=== PATIENT | female | born 1975 | race Caucasian/White ===

== ENCOUNTER → 2019-03-08 07:11 | Outpatient (CLI) | payer SELFPAY ==
--- NOTE | 2019-03-08 07:17 | BI_ITS ---
MAMMOGRAPHY - BILATERAL SCREENING REASON FOR EXAM: Female, 44 years old. Routine annual screening examination. PERTINENT HISTORY: Sister with breast cancer. Aunt with breast cancer. TECHNIQUE: Digital bilateral breast kelli (3D mammographic acquisition) in the CC and MLO projections. 2-D mediolateral oblique (MLO) and craniocaudad (CC) views of both breasts were obtained. CAD: Full Field Digital Mammography with Computer Added Detection was performed. COMPARISON: Comparison is made with prior study dated February 12, 2016 and March 12, 2014. FINDINGS: Breast Composition: There are scattered areas of fibroglandular density. There are no dominant masses or suspicious calcifications. No other significant abnormalities are identified. There has been no significant change since the prior study. BI/SCREEN MAMM (CAD) W/KELLI BILAT IMPRESSION: Stable bilateral screening mammogram. Yearly follow-up mammogram recommended. (A) ASSESSMENT CATEGORY: BIRADS Category 1: Negative. A letter regarding these results will be sent to the patient by the facility within 30 days. Approximately 10% of breast cancers are not detected by mammography. A normal mammogram should not delay biopsy of a clinically suspicious abnormality. [id number] Electronically Signed: Oliver Presley, at 8:58 EDT , Service support ,
== END ==
PROVIDERS: Family Provider Family Medicine; PCP Family Medicine; Referring Provider Obstetrics & Gynecology; Visit Provider Obstetrics & Gynecology
DX: Z12.31 Encounter for screening mammogram for malignant neoplasm of breast (principal)
CPT/HCPCS: 77063; 77067

== ENCOUNTER → 2020-10-08 12:38 | Outpatient (CLI) | payer OTHER, SELFPAY ==
--- NOTE | 2020-10-08 12:41 | BI_ITS ---
MAMMOGRAPHY - BILATERAL SCREENING REASON FOR EXAM: Female, 45 years old. Routine annual screening examination. PERTINENT HISTORY: Sister with breast cancer. Aunt with breast cancer. TECHNIQUE: Digital bilateral breast kelli (3D mammographic acquisition) in the CC and MLO projections. 2-D mediolateral oblique (MLO) and craniocaudad (CC) views of both breasts were obtained. CAD: Full Field Digital Mammography with Computer Added Detection was performed. COMPARISON: Comparison is made with prior examination of 03/08/2019 and 02/12/2016. FINDINGS: Breast Composition: There are scattered areas of fibroglandular density. There are no dominant masses or suspicious calcifications. No other significant abnormalities are identified. There has been no significant change since the prior study. BI/SCRN MAMM (CAD)W/KELLI BILAT IMPRESSION: Stable bilateral screening mammogram. Yearly follow-up mammogram recommended. (A) ASSESSMENT CATEGORY: BIRADS Category 1: Negative. A letter regarding these results will be sent to the patient by the facility within 30 days. Approximately 10% of breast cancers are not detected by mammography. A normal mammogram should not delay biopsy of a clinically suspicious abnormality. [id number] Electronically Signed: Oliver Presley MD at 13:46 EST , Service support ,
== END ==
PROVIDERS: PCP Family Medicine; Referring Provider Obstetrics & Gynecology; Visit Provider Obstetrics & Gynecology
DX: Z12.31 Encounter for screening mammogram for malignant neoplasm of breast (principal)
CPT/HCPCS: 77063; 77067

== ENCOUNTER → 2022-07-03 | Outpatient (CLI) | payer OTHER, SELFPAY ==
--- NOTE | 2022-07-03 10:05 | BI_ITS ---
MAMMOGRAPHY - BILATERAL SCREENING REASON FOR EXAM: Female, 47 years old. Routine annual screening examination. PERTINENT HISTORY: Sister with breast cancer. Aunt with breast cancer. TECHNIQUE: Digital bilateral breast kelli (3D mammographic acquisition) in the CC and MLO projections. 2-D mediolateral oblique (MLO) and craniocaudad (CC) views of both breasts were obtained. CAD: Full Field Digital Mammography with Computer Added Detection was performed. COMPARISON: Comparison is made with prior study 10/08/2020 and 03/08/2019. FINDINGS: Breast Composition: There are scattered areas of fibroglandular density. There are no dominant masses or suspicious calcifications. No other significant abnormalities are identified. There has been no significant change since the prior study. BI/SCRN MAMM (CAD)W/KELLI BILAT IMPRESSION: Stable bilateral screening mammogram. Yearly follow-up mammogram recommended. (A) ASSESSMENT CATEGORY: BIRADS Category 1: Negative. A letter regarding these results will be sent to the patient by the facility within 30 days. Approximately 10% of breast cancers are not detected by mammography. A normal mammogram should not delay biopsy of a clinically suspicious abnormality. [id number] Electronically Signed: Oliver Presley MD at 10:48 EDT ,
== END | disposition home or self-care (01) ==
PROVIDERS: PCP Family Medicine; Referring Provider Obstetrics & Gynecology; Visit Provider Obstetrics & Gynecology
DX: Z12.31 Encounter for screening mammogram for malignant neoplasm of breast (principal)
CPT/HCPCS: 77063; 77067

== ENCOUNTER 2023-11-15 05:30 | Emergency (ER) | payer BC, SELFPAY ==
[2023-11-15 05:34] VITALS: BP 164/106; PULSE 97; RESP 18; TEMP 36.2; O2SAT 100; BMI 40.8
[2023-11-15] MEDS: Ondansetron 4 MG/2 ML Vial IV ×2 (05:47→07:49)
[2023-11-15] MEDS: Morphine 4 MG/ML Syringe IV ×2 (05:47→07:50)
--- NOTE | 2023-11-15 05:47 | ED.VIS.GI ---
HPI HPI - GI History of Present Illness Chief Complaint: Abd Pain Detail of Chief Complaint: Worsening right upper quadrant abdominal pain Informant: patient and spouse/S.O. Abdominal Pain/Flank Pain Onset: Yesterday (30 minutes after she had salad, baked potato with butter sour cream) Context: Sudden Onset Timing: Continuous and Waxes and wanes Quality: Cramping Location: RUQ Current Severity: Severe Maximum Severity: Severe Worsened by: Nothing Relieved by: Nothing Nausea/Vomiting/Emesis GI Symptom: Positive for Nausea; Negative for Vomiting Diarrhea/Melena/Hematochezia GI Symptom: Negative for Diarrhea, Melena or Hematochezia Associated Symptoms Associated Symptoms: Negative for Dysuria, Frequency, Hematuria or Urgency Narrative Narrative: Patient is a 48-year-old woman who is scheduled see Dr. Cuauhtemoc Augustin for right upper quadrant abdominal pain. She had a ultrasound of the right upper quadrant November 10 at [facility]. Report was reviewed and interpreted by radiologist as normal. Patient had a HIDA scan performed on November 11. Patient has a hyperactive gallbladder. Ejection fraction was 96%. The pain today is much worse. She has had nausea with no vomiting. She denies black or maroon stool. Denies diarrhea. She denies dysuria, frequency, urgency or hematuria. There is no history of renal ureterolithiasis. The ultrasound did reveal a fatty liver and that was the only abnormality. Prior similar symptoms: Yes Recent Illness/Hospitalization: No PFSH PFS Medical History ADD (attention deficit disorder) Home Medications albuterol sulfate 90 mcg/actuation aerosol inhaler 2 puff inhalation Q4H PRN PRN wheezing 11/15/23 [History Last Taken Unknown] azelastine 137 mcg (0.1 %) nasal spray aerosol 2 spray intranasal BID 11/15/23 [History Last Taken Unknown] diazepam 5 mg tablet 5 mg PO Q8H PRN PRN anxiety 11/15/23 [History Last Taken Unknown] ergocalciferol (vitamin D2) 1,250 mcg (50,000 unit) capsule 1,250 mcg PO QWEEK 11/15/23 [History Last Taken Unknown] fluticasone propionate 50 mcg/actuation nasal spray,suspension 2 spray intranasal DAILY 11/15/23 [History Last Taken Unknown] lisdexamfetamine 40 mg capsule 40 mg PO DAILY 11/15/23 [History Last Taken Unknown] ondansetron 4 mg disintegrating tablet 4 mg PO Q8H PRN PRN Nausea #10 tabs 11/15/23 [Rx Last Taken Unknown] ondansetron 4 mg disintegrating tablet 4 mg PO Q8H PRN PRN nausea/vomiting 11/15/23 [History Last Taken Unknown] oxycodone-acetaminophen 5 mg-325 mg tablet 1 tab PO Q6H PRN PRN pain 5 days #20 TABLETS 11/15/23 [Rx Last Taken Unknown] Allergy/AdvReac Type Severity Reaction Status Date / Time amoxicillin Allergy Hives Verified 11/15/23 05:34 pseudoephedrine AdvReac Other Verified 11/15/23 05:34 [From [facility]] Surgical History H/O: hysterectomy Hx of appendectomy Social History (Updated 11/15/23 @ 05:[address] Corwin Vences MD) household members: spouse Smoking Status: Never smoker substance use type: does not use ROS ROS ED Constitutional Constitutional ED: Denies chills, fever(s), subjective or sweats ENT ENT ED: Denies ear pain, rhinorrhea or sore throat Cardiovascular Cardiovascular: Denies chest pain or palpitations Respiratory/Chest Respiratory/Chest: Denies cough, dyspnea or dyspnea on exertion Gastrointestinal Gastrointestinal: Reports abdominal pain and nausea; Denies constipation, diarrhea, melena or vomiting Genitourinary Genitourinary ED: Denies dysuria, hematuria or urinary frequency Musculoskeletal Musculoskeletal: Denies arthralgias, back pain or neck pain Integumentary Denies rash Hematologic/Lymphatic Hematologic/Lymphatic: Denies easy bleeding or easy bruising EXAM Physical Exam Const Vital Signs: 11/15/23 05:34 11/15/23 07:02 Temperature 97.1 F L Temperature Source Temporal Pulse Rate 97 51 L Respiratory Rate 18 18 Blood Pressure 164/106 H 132/62 H Blood Pressure Mean 125 85 Pulse Ox 100 96 Oxygen Delivery Method Room Air Positive well nourished, well developed and obese Constitutional Narrative: Patient is in obvious discomfort grimacing. General Appearance ED: well developed; Negative for NAD or pallor Nutritional Appearance: obese HEENT Reports moist mucous membranes normocephalic and atraumatic Eyes PERRL and EOMs intact bilaterally General Eye ED: Negative for pale conjunctiva or scleral icterus Neck no lymphadenopathy, supple and no JVD Resp normal respiratory effort and clear to auscultation bilaterally Cardio regular rate, regular rhythm, S1 normal heart sound, S2 normal heart sound and no murmurs GI non-distended and no masses; Negative for non-tender Auscultation: normoactive bowel sounds Palpation: soft and tender RUQ and Gordon's sign Back/Spine no CVA tenderness Extremity full ROM General Extremety ED: Negative for edema or tenderness General Extremity: Negative for edema Neuro CN's II-XII intact bilaterally and moves all extremities Sensorium / Orientation: alert Psych mental status grossly normal and thought process normal Skin no wounds General Skin Exam: Negative for jaundice or pallor MDM MDM MDM Narrative Medical decision making narrative: Patient with right upper quadrant abdominal pain. She has known history of fatty liver. She has a hyperactive gallbladder. Suspect the pain started because of the rich meal she had this evening. Will medicate patient with Zofran for the nausea and morphine and ketorolac for her pain. CBC, liver enzymes and lipase were ordered. These have been negative in the past. History & Record Review Additional record(s) reviewed:: Prior outpatient record (As documented in the HPI narrative. Patient white count was elevated 14.3 thousand with normal differential last week. Alkaline phosphatase was slightly up as well.), Prior ED visit and Prior labs Lab Data Attestation: I reviewed the patient's lab results. Lab results narrative: CBC is normal. Hepatic panel is normal. Lipase is normal. Labs: Laboratory Results - last 24 hr 11/15/23 05:40 WBC 10.6 RBC 5.14 Hgb 14.9 Hct 45.2 MCV 87.9 MCH 29.0 MCHC 33.0 RDW Std Deviation 42.9 RDW Coeff of Stephen 13.2 Plt Count 329 MPV 9.2 Immature Gran % (Auto) 0.300 Neut % (Auto) 64.6 Lymph % (Auto) 25.7 [place] % (Auto) 7.8 Eos % (Auto) 1.0 Baso % (Auto) 0.6 Absolute Neuts (auto) 6.8 Absolute Lymphs (auto) 2.72 Nucleated RBC % 0 Total Bilirubin 0.50 Direct Bilirubin 0.12 AST 17 ALT 21 Alkaline Phosphatase 86 Total Protein 7.1 Albumin 3.5 Globulin 3.6 Lipase 50 Management Discussion w/another healthcare provider: [employer] (Dr. Cuauhtemoc Augustin was paged. He was informed of patient's ultrasound report, HIDA scan report presentation and laboratory studies. He recommended pain medicine and he will discuss treatment options when she is seen in the office. This was relayed to the patient.) Treatment and Re-Evaluation :: Patient was reassessed at 0610. Patient's pain has improved but she is still in discomfort. Discharge Plan Triage Chief Complaint: Abd Pain ED Provider: Corwin Vences Dx/Rx/DC Orders Clinical Impression: Elevated blood-pressure reading, without diagnosis of hypertension, Adult BMI 40.0-44.9 kg/sq m, Intermittent right upper quadrant abdominal pain, Nausea Instructions: ED Pain, Acute, Uncertain Cause Prescriptions: New oxycodone-acetaminophen [oxycodone-acetaminophen] 5-325 mg tablet 1 tab PO Q6H PRN PRN (Reason: pain) 5 Days Qty: 20 0RF ondansetron [ondansetron] 4 mg tablet,disintegrating 4 mg PO Q8H PRN PRN (Reason: Nausea) Qty: 10 0RF No Action ergocalciferol (vitamin D2) 1,250 mcg (50,000 unit) capsule 1,250 mcg PO QWEEK azelastine 137 mcg (0.1 %) aerosol,spray 2 spray INTRANASAL BID albuterol sulfate 90 mcg/actuation HFA aerosol inhaler 2 puff INHALATION Q4H PRN PRN (Reason: wheezing) ondansetron 4 mg tablet,disintegrating 4 mg PO Q8H PRN PRN (Reason: nausea/vomiting) fluticasone propionate 50 mcg/actuation spray,suspension 2 spray INTRANASAL DAILY diazepam 5 mg tablet 5 mg PO Q8H PRN PRN (Reason: anxiety) lisdexamfetamine 40 mg capsule 40 mg PO DAILY Primary Care Provider: Joce Welch Referrals: Cuauhtemoc Augustin MD [Med Staff - Active Staff] - Keep Venita appointment Joce Welch MD [Primary Care Provider] - Disposition Disposition: Home, Self Care
[2023-11-15 05:49] LABS: Absolute Lymphocyte Count 2.72 X10^3/uL (0.83-4.51); Absolute Neutrophil Count 6.8 X10^3/uL (2.0-7.7); Basophil# 0.06 X10^3/uL; Basophil% 0.6 % (0-1); Eosinophil# 0.11 X10^3/uL; Hematocrit 45.2 % (37-47); Hemoglobin 14.9 g/dL (12.0-15.0); Lymphocyte # 2.72 X10^3/ul (0.83-4.51); Lymphocyte % 25.7 % (19-41); Mean Corpuscular Volume 87.9 fL (81-99); Mean Platelet Vol. 9.2 fl (6.2-12.0); Monocyte# 0.82 X10^3/uL; Monocyte% 7.8 % (0-10); NRBC Flagged by Analyzer 0 % (0-5); Neutrophil # 6.83 X10^3/uL (2.7-7.7); Neutrophil % 64.6 % (47-70); Platelet Count 329 K/mm3 (150-450); RBC Distribution Width CV 13.2 % (11.6-14.6); RBC Distribution Width SD 42.9 fl (35.1-43.9); Red Blood Count 5.14 M/mm3 (4.2-5.4); White Blood Count 10.6 K/mm3 (4.4-11.0)
[2023-11-15] MEDS: Ketorolac 15 MG/ML Vial IV (05:52)
[2023-11-15 06:09] LABS: AST(SGOT) 17 U/L (15-37); Alanine Aminotransfer ALT/SGPT 21 U/L (13-56); Albumin, Serum 3.5 g/dL (3.2-5.0); Alkaline Phosphatase 86 U/L (45-117); Bilirubin, Direct 0.12 mg/dL (0.00-0.30); Globulin 3.6 g/dL (2.2-4.2); Lipase 50 U/L (13-75); Protein, Total 7.1 g/dL (6.4-8.2)
[2023-11-15 07:02] VITALS: BP 132/62; PULSE 51; RESP 18; O2SAT 96
[2023-11-15 08:28] VITALS: BP 142/70; PULSE 78; RESP 18; TEMP 36.6; O2SAT 96
== END 2023-11-15 08:31 | disposition home or self-care (01) ==
PROVIDERS: Emergency Provider Emergency Medicine; PCP Family Medicine; Visit Provider Emergency Medicine
DX: R03.0 Elevated blood-pressure reading, without diagnosis of hypertension (principal); R10.11 Right upper quadrant pain; R11.0 Nausea; Z79.51 Long term (current) use of inhaled steroids
CPT/HCPCS: 80076; 83690; 85025; 96374; 96375; 96376; 99283; A4216; J2405

== ENCOUNTER → 2023-11-19 | Outpatient (CLI) | payer BC, SELFPAY ==
--- NOTE | 2023-11-19 10:47 | CT_ITS ---
STUDY: CT ABDOMEN AND PELVIS WITH CONTRAST REASON FOR EXAM: Female, 48 years old. Generalized abdominal pain. Hyperactive gallbladder. RADIATION DOSAGE (If Supplied By Facility): CTDIvol = ( 20.32 ) mGy, DLP = ( 1211.33 ) mGycm TECHNIQUE: Transaxial images were obtained from the dome of the diaphragm to the symphysis pubis with oral contrast. Oral and amp; IV Readi-CAT and amp; 100mL Isovue-370 was administered. Sagittal and coronal images were reconstructed. Individualized dose optimization techniques were used for this CT. COMPARISON: None. FINDINGS: The visualized lung bases are unremarkable. The visualized portions of the heart are within normal limits. There is decreased attenuation of the liver consistent with steatosis. Findings suggestive by 1.1 cm hemangioma in the posterior inferior aspect of the right lobe of the liver. Normal gallbladder and extrahepatic biliary system. Normal spleen. Normal pancreas. Normal bilateral adrenal glands. Normal right kidney. Normal left kidney. There is a small hiatal hernia. Normal small intestine. Moderate amount of fecal material is seen in the colon. There is non-visualization of the appendix. Normal abdominal aorta. Normal inferior vena cava. Normal retroperitoneum. Normal urinary bladder. There is a 3.2 cm x 1.9 cm cyst in the right ovary. The patient is status post hysterectomy. Normal abdominal wall. There are diffuse degenerative changes of the visualized lumbar spine. Straightening of the normal lumbar lordosis. CT/Abdomen/Pelvis WITH Contrast IMPRESSION: Findings suggestive a 1.1 cm hemangioma in the posterior inferior aspect of right lobe of liver. Fatty infiltration of the liver. Electronically Signed: Oliver Presley MD at 12:05 EDT ,
== END | disposition home or self-care (01) ==
LOC: CT 10:46
PROVIDERS: PCP Family Medicine; Referring Provider Surgery; Visit Provider Surgery
DX: R10.11 Right upper quadrant pain (principal)
CPT/HCPCS: 74177; Q9967

== ENCOUNTER 2023-11-22 07:24 | Day surgery (SDC) | payer BC, SELFPAY ==
[2023-11-22] VITALS (14 sets, daily range): BP systolic 121–151; BP diastolic 64–95; PULSE 72–93; RESP 16–18; TEMP 36.1–36.6; O2SAT 6–100; BMI 42.5
--- NOTE | 2023-11-22 07:32 | EKG12_ITS ---
Test Reason : pre op Blood Pressure : / mmHG Vent. Rate : 078 BPM Atrial Rate : 078 BPM P-R Int : 130 ms QRS Dur : 082 ms QT Int : 358 ms P-R-T Axes : 048 006 010 degrees QTc Int : 408 ms Normal sinus rhythm Normal ECG No previous ECGs available Confirmed by SARABJIT REYNOLDS, SAMUEL ([id number]), industrial editor LAURA LERMA ([id number]) on 11/24/2023 1:23:51 PM Referred By: Cuauhtemoc Augustin Confirmed By:SAMUEL WHIPPLE MD
[2023-11-22] MEDS: Lactated Ringers 1,000 ML 15 ML IV (07:45)
--- NOTE | 2023-11-22 08:30 | RAD_ITS ---
STUDY: INTRAOPERATIVE CHOLANGIOGRAM. REASON FOR EXAM: Female, 48 years old. Laparoscopic cholecystectomy. FLUOROSCOPY TIME (if supplied): ( 32.4 seconds ) minutes/seconds. 76.96 mGy. TECHNIQUE: The surgeon performed an intraoperative cholangiogram. COMPARISON: None. FINDINGS: The visualized intra and extrahepatic biliary ducts are unremarkable. There is free flow of contrast into the duodenum. No retained calculus is seen. RAD/Cholangiogram/ O R,Initial IMPRESSION: Unremarkable intraoperative cholangiogram. Electronically Signed: Oliver Presley MD at 12:44 EDT ,
--- NOTE | 2023-11-22 08:41 | HP.PCM_ITS ---
History and Physical Date of Admission: 11/22/23 Visit Reasons: Gallbladder Chief Complaint: gallbladder [employer] Advisor Required: No Is patient in pain?: Yes (RUQ ) Allergies amoxicillin Allergy (Verified 11/17/23 08:05) Hivespseudoephedrine [From [facility]] Adverse Reaction (Verified 11/17/23 08:05) Other Medications albuterol sulfate 90 mcg/actuation aerosol inhaler 2 puff inhalation Q4H PRN PRN wheezing 11/15/23 [History Confirmed 11/17/23] azelastine 137 mcg (0.1 %) nasal spray aerosol 2 spray intranasal BID 11/15/23 [History Confirmed 11/17/23] diazepam 5 mg tablet 5 mg PO Q8H PRN PRN anxiety 11/15/23 [History Confirmed 11/17/23] ergocalciferol (vitamin D2) 1,250 mcg (50,000 unit) capsule 1,250 mcg PO QWEEK 11/15/23 [History Confirmed 11/17/23] fluticasone propionate 50 mcg/actuation nasal spray,suspension 2 spray intranasal DAILY 11/15/23 [History Confirmed 11/17/23] lisdexamfetamine 40 mg capsule 40 mg PO DAILY 11/15/23 [History Confirmed 11/17/23] ondansetron 4 mg disintegrating tablet 4 mg PO Q8H PRN PRN Nausea #10 tabs 11/15/23 [Rx Confirmed 11/17/23] ondansetron 4 mg disintegrating tablet 4 mg PO Q8H PRN PRN nausea/vomiting 11/15/23 [History Confirmed 11/17/23] oxycodone-acetaminophen 5 mg-325 mg tablet 1 tab PO Q6H PRN PRN pain 5 days #20 TABLETS 11/15/23 [Rx Confirmed 11/17/23] PFSH Medical History (Updated 11/17/23 @ 08:[address] Cuauhtemoc Augustin MD) ADD (attention deficit disorder) Surgical History H/O: hysterectomy Hx of appendectomy Social History (Updated 11/17/23 @ 08:04 by Charlotte Yan LPN) household members: spouse Smoking Status: Never smoker alcohol intake: current alcohol intake frequency: holidays/special occasions only substance use type: does not use HPI HPI HPI: 48-year-old female. She is being referred by SALVADOR Hooper and Dr. Joce Welch for surgical consultation regarding gallbladder disease and a written copy my surgical consult and recommendations will be returned to them. The patient had presented to primary care with concerns about right upper quadrant pain. On October 27, 2023 white blood cell count was 14.5 with a hemoglobin 14.6 Stephens crit 42.9 and a platelet count of 322,000. 70% neutrophils. Amylase was 45 and lipase 67 with a total protein of 7.3 and an alkaline phosphatase of 99 and an AST of 19 and ALT of 27 all of these normal. Her concern was right upper quadrant pain with radiation to the shoulder blade with nausea postprandially. I am aware of her other medications he was placed on ondansetron. She is routinely on omeprazole 20 mg daily. At [facility] on October 27, 2023 she had a right upper quadrant ultrasound. Fatty infiltration of the liver was identified. Common bile duct was normal at 4 mm. There is no pericholecystic fluid no wall thickening no stones. Gordon sign was negative. Because of worsening right upper quadrant pain the patient presented to the [facility] emergency room on November 15, 2023. 30 minutes after she had a baked potato with butter and sour cream she developed worsening right upper quadrant pain. By their report they have evidence that she had a hepatobiliary scan performed on November 11 suggesting a hyperactive gallbladder with an ejection fraction of 96%. Her laboratory obtained at the emergency room demonstrated a white blood cell count of 10.6. The remainder of her laboratory particularly her liver function tests and lipase were normal.The patient was instructed to follow-up with me at her previously scheduled office consultation. The patient presents with a extended history. She claims April 2023 she began having problems with postprandial nausea and right upper quadrant pain with radiation to her back. The severity and episodes have increased in frequency and severity. There is no particular food that causes the problem but will occur 30 to 60 minutes postprandially. She can be awakened at night almost at the same time at 3 AM with right upper quadrant pain. Apparently initially she tried omeprazole for 6 months course of treatment as well as some bopn-[id number] antacids thinking that her symptoms were indigestion but she has since stopped that medication as it did not provide her benefit. She is also had some problems with constipation alternating with diarrhea over the past couple months and this has been since the onset of her pain. Her nausea remains a persistent feature. Prior to her ER visit she had a particularly severe episode she tried taking Aleve she tried taking Zofran for the nausea and then presented to the emergency room. She claims that currently she has a ongoing degree of nausea and right upper quadrant pain. She states in April she had some feet tingling problems and leukocytosis she was treated with antibiotics and steroids and then was [facility] her for lupus which was not identified. She is complaining of fatigue and anxiety and inability to lose weight. She states that when she had a hepatobiliary scan within 2 minutes of having the CCK injected she immediately became nauseated and had severe right upper quadrant pain. She has multiple family members who have had gallbladder disease and have required cholecystectomy's. Previous abdominal surgery includes C-sections x 3. ROS General General: Yes weight change (loss ) and fatigue HEENT HEENT: No difficulty swallowing, eye injury, eye surgery, swollen glands or hoarseness Endo Endocrine: No thyroid disease, diabetes mellitus, thyroid cancer, Hair loss, heat intolerance or cold intolerance Skin Skin: No rash or changing moles Musc Musculoskeletal: No back problems, arthritis, rheumatoid arthritis, gout or joint pain Cardio Cardiovascular: No murmur, pacemaker, heart disease, atrial fibrillation, high blood pressure, heart attack, heart stent, palpitations, shortness of breat with exertion or chest pain Psych Psychiatric: Yes depression and anxiety Resp Respiratory: Yes shortness of breath, No sleep apnea, No cough, No COPD, No asthma, No emphysema and No wheezing Gastro Gastrointestinal: Yes abdominal pain, Yes nausea or vomiting, No diarrhea, No c onstipation, No blood in stool, No acid reflux, No hemorrhoids, No ulcers, Yes gallbladder problem and No black,tarry stools Scott Hematologic: No blood thinners, No blood disorders, No bleeding, No anemia and No blood clots Neuro Neurologic: Yes numbness (in feet ) and Yes tingling (in feet ) Exam Const General: cooperative, comfortable and no acute distress Nutritional Appearance: obese morbidly obese [facility] Head: normal to inspection Eyes General: appearance normal, both eyes and all related structures Neck Neck: normal visual inspection Resp Effort & Inspection: normal respiratory effort Auscultation: clear to auscultation bilaterally Cardio Rate: regular rate Rhythm: regular rhythm GI Other: Mild tenderness noted right upper quadrant though without mass. No rebound or guarding. Bowel sounds are diminished and nonspecific. Musc Cervical Spine: normal cervical lordosis Skin General: no rashes or lesions noted Neuro General: patient alert, patient awake and patient oriented x3 Extrem General: no calf tenderness Psych Appearance: grossly normal Assessment and Plan Assessment and Plan (1) Abnormal biliary HIDA scan: Status: Acute Orders: Orders Abdomen/Pelvis WITH Contrast Today R10.11 - Right upper quadrant pain, R10.9 - Unspecified abdominal pain Plan This 48-year-old female with symptoms consistent with hyperfunctioning gallbladder. I have in great detail explained the potential correlation with hyperfunctioning gallbladder and her symptoms although not guaranteeing that surgical intervention will resolve her symptoms. I suggested perhaps as much is a 60% chance of improving her illness. Because of her other diffuse symptoms I do recommend prior to us proceeding we obtain a contrasted abdominal pelvic CT scan. She may in addition have complaints that would be more consistent with IBS but the persistent postprandial nausea and right upper quadrant pain in particular reaction when she had a hepatobiliary scan does suggest a gallbladder issue. This is further suggested by her strong family history of gallbladder disease. I propose for her laparoscopic cholecystectomy with selective cholangiography. I discussed technique and benefits and risks and complications. No guarantees of success have been offered. We will obtain abdominal pelvic CT imaging and then try to expedite her surgical intervention. She has had an opportunity to ask and have questions answered. I appreciate the opportunity of assisting with her surgical care. Copy:SALVADOR Hooper and Dr. Joce Augustin M.D., F.A.C.S. CT scan showed a fatty liver and a 1.1 cm hemangioma of the right lobe of the liver. No acute findings. Based upon a tentative diagnosis of biliary dyskinesia or hyperfunctioning gallbladder will proceed with planned laparoscopic cholecystectomy with selective cholangiograms. Cuauhtemoc Augustin M.D., F.A.C.S.
--- NOTE | 2023-11-22 08:42 | DCINST_ITS ---
Discharge Instructions Procedure General Surgery
--- NOTE | 2023-11-22 08:42 | EX.PCM.DISCH ---
Discharge Instructions Procedure General Surgery Diet Discharge Diet: Light diet - advance as tolerated (if you have questions about your diet instructions, please talk to you doctor.) Activity Discharge Activity: May Not Drive (for 3-5 days or while taking narcotic pain medicine.) May shower in (days): 1 Lifting Restrictions: 10 pounds Dressing / Incision Call your doctor if your incision/area has: Continuous Slow Oozing, Sudden Increased Bleeding, Increased Pain/ Swelling, Increased Redness and Foul Smelling Discharge Call your doctor if you observe: Fever of 101 or Higher Suture Line Care: Avoid Pulling/Pushing and Avoid Pinching/Bending Additional Dressing/Incision Instructions:: Change or remove dressing in 4 days. Leave steri-strips in place for 1 week. Follow Up Care Please Follow Up With: Cuauhtemoc Augustin MD When: Call [phone] to make an appointment to be seen in about 10 days. Test Results: Test results from this visit will be discussed in further detail at your follow-up appointment, if applicable. Discharge Plan Admission Attending Provider: Cuauhtemoc Augustin Primary Care Provider: Joce Welch Discharge Orders/Prescriptions Prescriptions: No Action ergocalciferol (vitamin D2) 1,250 mcg (50,000 unit) capsule 1,250 mcg PO QWEEK azelastine 137 mcg (0.1 %) aerosol,spray 1 spray INTRANASAL BID albuterol sulfate 90 mcg/actuation HFA aerosol inhaler 2 puff INHALATION Q4H PRN PRN (Reason: wheezing) fluticasone propionate 50 mcg/actuation spray,suspension 2 spray INTRANASAL DAILY diazepam 5 mg tablet 5 mg PO Q8H PRN PRN (Reason: anxiety) lisdexamfetamine 40 mg capsule 40 mg PO DAILY oxycodone-acetaminophen [oxycodone-acetaminophen] 5-325 mg tablet 1 tab PO Q6H PRN PRN (Reason: pain) 5 Days Qty: 20 0RF ondansetron [ondansetron] 4 mg tablet,disintegrating 4 mg PO Q8H PRN PRN (Reason: Nausea) Qty: 10 0RF Probacap 10 billion cell capsule 100 mmu cells PO DAILY magnesium 200 mg tablet 400 mg PO DAILY multivitamin [Daily Multi-Vitamin] Tablet 1 tab PO DAILY melatonin 3 mg capsule 3 mg PO QHS PRN (Reason: sleep) naproxen sodium [Aleve] 220 mg capsule 220 mg PO BID PRN (Reason: pain) acetaminophen [Aphen] 325 mg tablet 325 mg PO Q6H PRN (Reason: pain) Referrals / Follow Up: Joce Welch MD [Primary Care Provider] - Disposition Disposition (needs filled in before D/C Order can be placed): Home, Self Care
[2023-11-22] MEDS: Clindamycin 900 MG/50 ML BAG 75 MG IV (09:00)
--- NOTE | 2023-11-22 09:30 | GALL_PTH ---
PATIENT: ILEANA RUIZ LOC: [facility] U#:[id number] AGE/SX: 48/F ROOM: RE11/22/[address]: Dr. Cuauhtemoc Augustin MD : 1975 BED: DIS: 11/22/2023 SPEC #: [id number] RECD: 11/22/23 11:28 STATUS: GURINDER LOPES #: [id number] SHAHZAD: 11/22/23 09:[address]: Cuauhtemoc Augustin DEPT: SURGICAL PATHOLOGY RECD BY: Heather Interiano ENTERED: 11/22/23 12:00 SP TYPE: MADDY RODRIGUEZ DR: Dr. Joce Welch MD Tissues: Gallbladder, NOS Procedures: Surgery Specimen Level III HEADER OPERATION: Laparoscopic, cholecystectomy with IOC PRE-OP DIAGNOSIS: Abnormal biliary HIDA scan TISSUE SUBMITTED: Gallbladder and contents MICROSCOPIC DIAGNOSIS Gallbladder, cholecystectomy: Mild chronic cholecystitis. See comment. JOHNY/ 3/26/24 COMMENT No stones are identified in the container or in the gallbladder. MICROSCOPIC DESCRIPTION Slides are reviewed. GROSS DESCRIPTION Received is one container labeled with the patient's name and designated gallbladder. The specimen consists of a gallbladder measuring 8.5 cm in length and up to 2.5 cm in diameter. The external surface is pink-soliz, smooth and glistening for the most part. Focally it is granular, hemorrhagic and contains cautery artifact. The gallbladder contains green-yellow mucoid bile and no stones are identified in the container or in the gallbladder. The mucosa is bile-stained and without any mass lesions. The gallbladder wall measures up to 0.2 cm in thickness. Drier Tender sections from the gallbladder and the cystic duct are submitted in one cassette. / SJ: 11/22/23 TC: 3 CPT: 96872
[2023-11-22] MEDS: Bupivacaine Mpf 0.5% 30 ML VIAL (10:25)
--- NOTE | 2023-11-22 10:28 | OP.PCM_ITS ---
Report of Operation Date of Procedure: 11/22/23 Pre-Operative Diagnosis: Biliary dyskinesia Post-Operative Diagnosis: Same Surgery/Procedure Performed:: Laparoscopic cholecystectomy with cholangiograms Description of Surgical Findings:: Timeout informed consent was obtained. 48-year-old female was taken to the operating placed upon the table underwent general endotracheal intubation esthesia. Clindamycin 900 g were given intravenously preoperatively. The abdomen was sterilely prepped and draped. 0.5% Marcaine was used as a local anesthetic. Skin sites were preanesthetized. A total of 30 cc was used throughout. A supraumbilical vertical incision was created holding sutures of 0 Vicryl placed varies needle inserted saline drop test performed the abdomen was insufflated with CO2 to a pressure of 12 mmHg pressure. 12 mm trocar inserted. 10 mm laparoscope inserted. No evidence of any trocar injuries. There were adhesions of omentum in the mid infra umbilical midline. There were adhesions mildly of omentum to the gallbladder. Under direct visualization 5 mm ports were placed in the epigastric right upper mid subcostal area and right lateral subcostal area. The gallbladder was elevated the omental adhesions were tra nsected using hot electrocauterized scissors. Then tedious blunt dissection and students to do at the end from table until clearly the cystic artery and cystic duct had been identified. Critical view was achieved. 2 Hem-o-michael clips were placed on the cystic artery proximally 1 distally prior to transecting it. Hemoclip was placed on the cystic duct stump incision made in the cystic duct and through a 14-gauge Angiocath a cholangiogram catheter was inserted. Fluoroscopically controlled cholangiograms were obtained demonstrating normal ductal anatomy and free flow into the small bowel. The cholangiogram catheter was removed 2 Hem-o-michael clips were placed on the cystic duct stump prior to transecting it. The cystic artery was tediously dissected free from the liver bed. Where needed small vessels were secured with Hem-o-michael clips. The gallbladder was finally released. There was no spillage. It was placed in a retrieval bag. The right upper quadrant was irrigated and aspirated free of excess fluid. A piece of fibrillar was placed in the liver bed to assure hemostasis. The abdomen was inspected was noted to be hemostatic. The abdomen was allowed to deflated the CO2. The gallbladder was exited the umbilicus. The fascia at the umbilicus approximated with a interrupted suture of 0 Vicryl simple suture and one that was ypjujz-zb-yfrny. Skin edges were approximated interrupted 4 Monocryl subdermal stitches. Steri-Strips Telfa OpSite dressings applied. Sponge and instrument and needle counts were reported to the surgeon to be correct. Specimen gallbladder. Drains none. Blood loss 10 cc. The patient was taken to recovery room in satisfied condition without apparent complication Surgeon: Cuauhtemoc Augustin Type of Anesthesia: General and Local Anesthesiologist: Jose Coelho
== END 2023-11-22 14:53 | disposition home or self-care (01) ==
LOC: SDC 07:24 → AC 07:25
PROVIDERS: PCP Family Medicine; Referring Provider Surgery; Visit Provider Surgery
PROC: (CPT 47610; principal; 2023-11-22 09:10)
DX: K81.1 Chronic cholecystitis (principal); K82.8 Other specified diseases of gallbladder; F90.0 Attention-deficit hyperactivity disorder, predominantly inattentive type; Z79.51 Long term (current) use of inhaled steroids
CPT/HCPCS: 47563; 00790; 74300; 76000; 88304; 93005; J7120; J2405

== ENCOUNTER → 2023-11-30 | Outpatient (CLI) | payer BC, SELFPAY ==
--- NOTE | 2023-11-30 11:54 | BI_ITS ---
MAMMOGRAPHY - BILATERAL SCREENING REASON FOR EXAM: Female, 48 years old. Routine annual screening examination. PERTINENT HISTORY: Sister with breast cancer. Aunt with breast cancer. TECHNIQUE: Digital bilateral breast kelli (3D mammographic acquisition) in the CC and MLO projections. 2-D mediolateral oblique (MLO) and craniocaudad (CC) views of both breasts were obtained. CAD: Full Field Digital Mammography with Computer Added Detection was performed. COMPARISON: Comparison is made with prior study July 03, 2022 and October 08, 2020. FINDINGS: Breast Composition: There are scattered areas of fibroglandular density. There are no dominant masses or suspicious calcifications. No other significant abnormalities are identified. There has been no significant change since the prior study. BI/SCRN MAMM (CAD)W/KELLI BILAT IMPRESSION: Stable bilateral screening mammogram. Yearly follow-up mammogram recommended. (A) ASSESSMENT CATEGORY: BIRADS Category 2: Benign. A letter regarding these results will be sent to the patient by the facility within 30 days. Approximately 10% of breast cancers are not detected by mammography. A normal mammogram should not delay biopsy of a clinically suspicious abnormality. [id number] Electronically Signed: Oliver Presley MD at 13:54 EDT ,
== END | disposition home or self-care (01) ==
LOC: OPBI 11:54
PROVIDERS: PCP Family Medicine; Referring Provider Nurse Practitioner Women's Health; Visit Provider Nurse Practitioner Women's Health
DX: Z12.31 Encounter for screening mammogram for malignant neoplasm of breast (principal)
CPT/HCPCS: 77063; 77067

== ENCOUNTER → 2024-10-23 | Outpatient (CLI) | payer BC, OTHER, SELFPAY ==
--- NOTE | 2024-10-23 15:05 | MRI_ITS ---
PROCEDURE: Noncontrast MRI of the right knee. REASON FOR EXAM: Pain throughout the right knee for 6 months. No specific injury. TECHNIQUE: Multiplanar, multisequence MRI images of the right knee were obtained without IV contrast. COMPARISON: None available FINDINGS The patellar ligament and included distal quadriceps tendon are intact. No acute fracture or dislocation of the right knee. The cruciate and collateral ligaments are intact. No discrete meniscal tear. There is 5 mm of lateral patellar subluxation. No transient patellar dislocation. The patellar retinacula and popliteus muscle/tendon are intact. No soft tissue mass or drainable fluid collection of the right knee. No sizable popliteal cyst. There is gsfkthhy-km-[id number] articular cartilage loss of the patella, greatest involving the lateral patellar facet, with minimal subcortical marrow edema. There is moderate marrow edema involving the anterior weight-bearing surface of the lateral femoral condyle, with severe overlying articular cartilage loss/thinning. No osteochondral lesion is demonstrated. Small to moderate joint effusion. MRI/Lower Ext Joint Only (Routine) IMPRESSION: No acute fracture of the right knee is demonstrated. Small to moderate joint e ffusion. No internal ligamentous derangement or discrete meniscal tear. There is a focal area of severe articular cartilage loss involving the anterior weight-bearing surface of the lateral femoral condyle with underlying moderate subcortical marrow edema. There is fkycucna-ja-aqvntx articular cartilage loss involving the patellofemor al compartment, greatest involving the lateral patellar facet, with minimal subcortical marrow edema. Reading Location: [facility]
== END | disposition home or self-care (01) ==
PROVIDERS: PCP Family Medicine; Referring Provider Student in an Organized Health Care Education/Training Program; Visit Provider Student in an Organized Health Care Education/Training Program
DX: S83.8X1D Sprain of other specified parts of right knee, subsequent encounter (principal); M25.461 Effusion, right knee; Z74.09 Other reduced mobility
CPT/HCPCS: 73721

== ENCOUNTER → 2024-11-30 | Outpatient (CLI) | payer BC, OTHER, SELFPAY ==
--- NOTE | 2024-11-30 11:45 | BI_ITS ---
EXAM: SCRN MAMM (CAD)W/KELLI BILAT DATE: 11/30/2024 CLINICAL HISTORY: F, Age 49 y/o , SCREENING Sister with breast cancer. Maternal aunt with breast cancer. BREAST CANCER RISK ASSESSMENT: Not assessed. TECHNIQUE: Bilateral screening digital breast tomosynthesis with 2D and 3D images. Computer aided detection. COMPARISON: Prior exam(s) dated comparison is made with prior mammogram dated November 30 2023.. FINDINGS: TISSUE DENSITY: The breast tissue is composed of scattered area of fibroglandular density. Bilateral Breast Mammographic Findings: No significant masses, calcifications or other abnormalities are identified. No suspicious masses, areas of developing architectural distortion, or suspicious calcifications. There has been no significant interval change. BI/SCRN MAMM (CAD)W/KELLI BILAT IMPRESSION: Right Breast: BIRADS 1 NEGATIVE. Left Breast: BIRADS 1 NEGATIVE. OVERALL FINAL ASSESSMENT: BIRADS 1 NEGATIVE RECOMMENDATION: Routine annual follow-up in 1 Year A letter with findings and recommendations will be mailed to the patient. Reading Location: [place] [id number]
== END | disposition home or self-care (01) ==
LOC: OPBI 11:43
PROVIDERS: PCP Family Medicine; Referring Provider Nurse Practitioner Women's Health; Visit Provider Nurse Practitioner Women's Health
DX: Z12.31 Encounter for screening mammogram for malignant neoplasm of breast (principal)
CPT/HCPCS: 77063; 77067

== ENCOUNTER → 2024-12-06 | Outpatient (CLI) | payer BC, OTHER, SELFPAY ==
[2024-12-06 12:08] LABS: Absolute Lymphocyte Count 2.72 X10^3/uL (0.83-4.51); Absolute Neutrophil Count 7.1 X10^3/uL (2.0-7.7); Basophil# 0.09 X10^3/uL; Basophil% 0.8 % (0-1); Eosinophil# 0.08 X10^3/uL; Eosinophils% 0.7 % (0-5); Hemoglobin 14.7 g/dL (12.0-15.0); Lymphocyte # 2.72 X10^3/ul (0.83-4.51); Lymphocyte % 25.4 % (19-41); Mean Corp Hgb Conc 34.2 g/dL (32-36); Mean Corpuscular Hgb 29.5 pg (27.0-32.0); Mean Corpuscular Volume 86.3 fL (81-99); Mean Platelet Vol. 9.5 fl (6.2-12.0); Monocyte# 0.71 X10^3/uL; Monocyte% 6.6 % (0-10); NRBC Flagged by Analyzer 0 % (0-5); Neutrophil # 7.08 X10^3/uL (2.7-7.7); Neutrophil % 66.2 % (47-70); Platelet Count 340 K/mm3 (150-450); RBC Distribution Width SD 40.5 fl (35.1-43.9); Red Blood Count 4.98 M/mm3 (4.2-5.4); White Blood Count 10.7 K/mm3 (4.4-11.0)
[2024-12-06 15:01] LABS: Estradiol 77.9 pg/mL; Follicle Stimulating Hormone 2.2 mIU/mL; Vitamin D,25 Hydroxy 33.7 ng/mL (30-100)
[2024-12-07 04:07] LABS: Thyroid Peroxidase AB 16 IU/mL (0-34)
== END | disposition home or self-care (01) ==
PROVIDERS: PCP Family Medicine; Referring Provider Nurse Practitioner Women's Health; Visit Provider Nurse Practitioner Women's Health
DX: N95.1 Menopausal and female climacteric states (principal); Z80.3 Family history of malignant neoplasm of breast; Z13.29 Encounter for screening for other suspected endocrine disorder
CPT/HCPCS: 36415; 82306; 82670; 83001; 84439; 84443; 85025; 86376

== ENCOUNTER → 2025-07-05 | Outpatient (CLI) | payer BC, OTHER, SELFPAY ==
--- NOTE | 2025-07-05 10:24 | MRI_ITS ---
PROCEDURE: MRI/Breast Bilateral W/O and W
== END | disposition home or self-care (01) ==
LOC: OPMRI 10:15
PROVIDERS: PCP Family Medicine; Referring Provider Nurse Practitioner Women's Health; Visit Provider Nurse Practitioner Women's Health
DX: Z00.00 Encounter for general adult medical examination without abnormal findings (principal); Z80.3 Family history of malignant neoplasm of breast
CPT/HCPCS: 77049; A9575; A4216; C8908